=== PATIENT | female | born 1980 | race Caucasian/White ===

== ENCOUNTER 2017-10-16 10:41 | Inpatient (IN) ==
--- NOTE | 2017-10-16 11:43 | Emergency Department Note ---
Disposition Clinical Impression: Suicide ideation, Polysubstance (excluding opioids) dependence, Medical clearance for psychiatric admission Disposition: Admitted As Inpatient Condition: Undetermined General Adult HPI - General Chief complaint: ED Psychiatric Symptoms Stated complaint: SI Time Seen by Provider: 10/16/17 11:06 Source: patient Mode of arrival: private vehicle Limitations: no limitations Nursing Notes Reviewed: Yes Vital Signs Reviewed: Yes - History of Present Illness HPI Narrative: Patient is a 36-year-old female with past medical history including bipolar disorder, depression, anxiety, personality disorders, not on any medications, history of IV drug use and hepatitis C, presents with chief complaint of suicide ideation. Patient states she has a history of suicide ideation and attempt. 4 times in the past she has tried harming herself with intentional he will consumption of pills. She complains of difficulty sleeping and states she has been up for the past 4 days. She states yesterday she took IV heroin. She knew the dose was too much but she did not care. She states in the evening she was found unconscious by her boyfriend and friend. She was told they did CPR for approximately 10 minutes. She was also given intranasal Narcan. Shortly after she woke up. The patient refused to go to the ER have the squad called. She complains of some chest soreness but no difficulty breathing. She says for the past year she has been having intermittent episodes of thoughts of harming herself but has not acted upon them. Says this morning she had the impulse to harm herself. She does not have a plan in place. She says that she come to the ER for help because if she didn't, she would not be here in the next couple of days. She denies any visual or auditory hallucinations. She denies wanting to harm others. Pain Scale: 6 - Related Data Home Medications Medication Instructions Recorded Confirmed No Known Home Drugs 10/16/17 10/16/17 Allergies Allergy/AdvReac Type Severity Reaction Status Date / Time No Known Allergies Allergy Verified 10/16/17 12:41 All systems ED: reviewed and negative except as stated. Review of Systems: As Per HPI Constitutional: Denies: fever, chills Eyes: Denies: vision change ENT ED: Denies: throat pain, congestion Cardiovascular: Reports: other (Chest wall pain). Denies: palpitations, dyspnea on exertion Respiratory: Denies: cough, dyspnea Gastrointestinal: Denies: abdominal pain, nausea Genitourinary: Denies: urgency, dysuria, hematuria Musculoskeletal: Denies: back pain Integumentary: Denies: rash Neurological: Reports: headache Psychiatric: Reports: anxiety, depression, suicidal thoughts. Denies: homicidal thoughts, auditory hallucinations, visual hallucinations Hematological/Lymphatic: Denies: easy bleeding Past Medical History - Past Medical History Attestation: Yes The following information was validated with the patient. Source: patient Medical history: Reports: other (IV drug abuse) Psychiatric history: Reports: no psych history [employer] history: Reports: bilateral tubal ligation - Social History Smoking Status: Current every day smoker Alcohol use: Reports: none Drug use: Reports: cocaine, opiates, marijuana, IV Drug Use Physical Exam - General Limitations: no limitations General appearance: alert, in no apparent distress - Head Head exam: atraumatic, normocephalic - Eye Eye exam: Present: normal appearance, EOMI. Absent: scleral icterus - ENT ENT exam: normal oropharynx, mucous membranes moist - Chest Chest inspection: Present: symmetric chest wall rise, other (No ecchymosis) - Respiratory Respiratory exam: Present: normal lung sounds bilaterally. Absent: respiratory distress, wheezes, accessory muscle use - Cardiovascular Cardiovascular exam: Present: regular rate, normal rhythm, normal heart sounds - Abdominal Exam Abdominal exam: Present: soft, Non-Tender - Neurological Exam Neurological exam: Present: alert, oriented X3, CN II-XII intact - Psychiatric Psychiatric exam: Present: suicidal ideation, other (Tearful) - Skin Skin exam: Present: warm, dry Course Vital Signs Temperature 97.8 F 10/16/17 10:46 Pulse Rate 93 10/16/17 10:46 Respiratory Rate 16 10/16/17 10:46 Blood Pressure 121/87 10/16/17 10:46 O2 Sat by Pulse Oximetry 96 10/16/17 10:46 Temperature 98.2 F 10/16/17 14:09 Pulse Rate 94 10/16/17 15:03 Respiratory Rate 16 10/16/17 15:03 Blood Pressure 111/73 10/16/17 15:03 O2 Sat by Pulse Oximetry 97 10/16/17 15:03 Oxygen Delivery Oxygen Delivery Room Air Medical Decision Making - MDM Narrative Medical decision making narrative: Will get psychiatric medical clearance. CBC, BMP, urinalysis, urine drug screen , test, ethanol Tylenol and salicylate levels ordered. TSH ordered. We will also order a chest x-ray as the patient is complaining of chest wall pain secondary to having CPR performed the night prior. [place] slip sign. We will have 1-a evaluate the patient. 13:15 Chest x-ray results reviewed. There is no evidence of acute cardiopulmonary process. Labs also reviewed. No leukocytosis. Electrolyte within normal limits. Urinalysis without evidence of infection. TSH within normal limits. Ethanol, salicylate level, acetaminophen level not elevated. Urine drug screen positive for opiates, benzos, amphetamines, and THC. 1a currently evaluating the patient. 15:30 1a accepted. Patient will be admitted for further evaluation and management of suicide ideation - Medical Records Medical records reviewed: Yes I reviewed the patient's medical records. - Lab Data Lab results reviewed: Yes I reviewed the patient's lab results. Result diagrams: 10/16/17 11:49 10/16/17 11:49 Lab Results 10/16/17 10/16/17 10/16/17 Range/Units 11:13 11:13 11:49 WBC 10.9 (4.3-11.1) K/mcL RBC 4.31 (3.82-4.97) M/mcL Hgb 11.6 (11.5-15.4) g/dL Hct 35.5 (35.3-44.9) % MCV 82.4 L (83.0-100.0) fL MCH 26.9 L (28.0-33.3) pg MCHC 32.7 (31.6-35.5) g/dL RDW 16.2 H (11.5-14.5) % Plt Count 422 H (140-400) K/mcL MPV 10.1 (9.4-12.4) fL Immature Gran % 0.4 (0-4) % Seg Neutrophils % 50.9 % Lymphocytes % 34.8 % Monocytes % 11.2 % Eosinophils % 2.2 % Basophils % 0.5 % Neutrophils # 5.5 (1.6-8.9) K/mcL Lymphocytes # 3.8 (0.6-4.6) K/mcL Monocytes # 1.2 (0.0-1.3) K/mcL Eosinophils # 0.2 (0.0-0.6) K/mcL Basophils # 0.1 (0.0-0.2) K/mcL Sodium (136-145) mEq/L Potassium (3.5-5.1) mEq/L Chloride (98-107) mEq/L Carbon Dioxide (23-29) mEq/L BUN (6-20) mg/dL Creatinine (0.60-1.20) mg/dL Est GFR ( Amer) (> 60) Est GFR (Non-Af Amer) (> 60) BUN/Creatinine Ratio (6-26) Glucose (70-105) mg/dL Calculated Osmolality (280-300) Calcium (8.6-10.3) mg/dL TSH (0.340-5.600) mcIU/mL Serum , Qual (Negative) Urine Color Dark Yellow (Yellow) Urine Clarity Clear (Clear) Urine pH 6.0 (5.0-8.0) pH Units Ur Specific [place] 1.021 (1.010-1.025) Urine Protein 30 H (Neg-Trace) mg/dL Urine Glucose (UA) Normal (Normal) mg/dL Urine Ketones Trace H (Negative) mg/dL Urine Blood Negative (Negative) Urine Nitrite Negative (Negative) Urine Bilirubin Small H (Negative) Urine Urobilinogen Normal (Normal) mg/dL Ur Leukocyte Esterase Negative (Negative) Urine Microscopic RBC 5-15 H (0-3) per hpf Urine Microscopic WBC 3-5 H (0-3) per hpf Ur Squamous Epith Cells Many H (None-Few) per lpf Urine Bacteria None Seen (None-Few) per hpf Hyaline Casts Few (None-Few) per lpf Salicylates (15.0-30.0) mg/dL Urine Opiates Screen Positive H (Nxfupj=142) ng/mL Acetaminophen (10-20) mcg/mL Ur Barbiturates Screen Negative (Ntwlyf=824) ng/mL Ur Phencyclidine Scrn Negative (Cutoff=25) ng/mL Ur Amphetamines Screen Positive H (Wfzuhd=6569) ng/mL U Benzodiazepines Scrn Positive H (Mkivlx=512) ng/mL Urine Cocaine Screen Negative (Cutoff= 300) ng/mL U Marijuana (THC) Screen Positive H (Cutoff = 50) ng/mL Ur Drug Screen Interp See Below Ethyl Alcohol (Less than 10) mg/dL 08/27/18 08/27/18 Range/Units 11:49 11:49 WBC (4.3-11.1) K/mcL RBC (3.82-4.97) M/mcL Hgb (11.5-15.4) g/dL Hct (35.3-44.9) % MCV (83.0-100.0) fL MCH (28.0-33.3) pg MCHC (31.6-35.5) g/dL RDW (11.5-14.5) % Plt Count (140-400) K/mcL MPV (9.4-12.4) fL Immature Gran % (0-4) % Seg Neutrophils % % Lymphocytes % % Monocytes % % Eosinophils % % Basophils % % Neutrophils # (1.6-8.9) K/mcL Lymphocytes # (0.6-4.6) K/mcL Monocytes # (0.0-1.3) K/mcL Eosinophils # (0.0-0.6) K/mcL Basophils # (0.0-0.2) K/mcL Sodium 137 (136-145) mEq/L Potassium 3.6 (3.5-5.1) mEq/L Chloride 103 (98-107) mEq/L Carbon Dioxide 30 H (23-29) mEq/L BUN 8 (6-20) mg/dL Creatinine 0.67 (0.60-1.20) mg/dL Est GFR ( Amer) > 60 (> 60) Est GFR (Non-Af Amer) > 60 (> 60) BUN/Creatinine Ratio 12 (6-26) Glucose 117 H (70-105) mg/dL Calculated Osmolality 283 (280-300) Calcium 9.4 (8.6-10.3) mg/dL TSH 1.622 (0.340-5.600) mcIU/mL Serum , Qual Negative (Negative) Urine Color (Yellow) Urine Clarity (Clear) Urine pH (5.0-8.0) pH Units Ur Specific [place] (1.010-1.025) Urine Protein (Neg-Trace) mg/dL Urine Glucose (UA) (Normal) mg/dL Urine Ketones (Negative) mg/dL Urine Blood (Negative) Urine Nitrite (Negative) Urine Bilirubin (Negative) Urine Urobilinogen (Normal) mg/dL Ur Leukocyte Esterase (Negative) Urine Microscopic RBC (0-3) per hpf Urine Microscopic WBC (0-3) per hpf Ur Squamous Epith Cells (None-Few) per lpf Urine Bacteria (None-Few) per hpf Hyaline Casts (None-Few) per lpf Salicylates < 2.5 L (15.0-30.0) mg/dL Urine Opiates Screen (Hhsxqq=722) ng/mL Acetaminophen < 10 L (10-20) mcg/mL Ur Barbiturates Screen (Dmhzoa=326) ng/mL Ur Phencyclidine Scrn (Cutoff=25) ng/mL Ur Amphetamines Screen (Eextcu=2013) ng/mL U Benzodiazepines Scrn (Cactst=458) ng/mL Urine Cocaine Screen (Cutoff= 300) ng/mL U Marijuana (THC) Screen (Cutoff = 50) ng/mL Ur Drug Screen Interp Ethyl Alcohol < 10 (Less than 10) mg/dL - Radiology Data Radiology results reviewed: Yes I reviewed the patient's radiology results. Chest X-Ray 10/16/17 11:30 IMPRESSION: No radiographic evidence of acute cardiopulmonary disease. D/ / Ramesh King / Ramesh King Interpreting Provider: Ramesh King Attestation Statement - Attestation Attestation: I examined this patient and my medical decision-making was reviewed with the Resident Physician, Dr. Flannery. I agree with the documented findings, disposition and treatment plan as described except to the extent set forth below. Patient is a 36-year-old female with a history of psychiatric illness including depression with prior suicidal ideation and intent that she is been hospitalized for the past complaining of suicidal ideation today. Patient also has history of polysubstance abuse had been doing well and off drugs for approximately last 2 months and yesterday used heroin and other substances. Patient denies any attempts to harm herself prior to arrival denies any drug overdose and denies any current plan. I agree with patient's physical exam findings as documented. Vital signs are stable. Shows placed on suicide precaution and elopement precautions, pink slip was signed and placed on the chart. Laboratory evaluation is unremarkable with the exception of positive substances that she admitted to on her drug screen. Patient was evaluated by [facility] and recommended inpatient admission for further evaluation and management of her suicidal ideation. Patient will be admitted for further care.
[2017-10-16 11:48] LABS: Bilirubin,Urine Small (Negative); Blood,Urine Negative (Negative); Clarity,Urine Clear (Clear); Color,Urine Dark Yellow (Yellow); Glucose,Urine (UA) Normal (Normal); Ketones,Urine Trace mg/dL (Negative); Leukocyte Esterase,Urine Negative (Negative); Nitrite,Urine Negative (Negative); Protein,Urine 30 mg/dL (Neg-Trace); Specific Gravity,Urine 1.021 (1.010-1.025); Urobilinogen,Urine Normal (Normal)
[2017-10-16 11:53] LABS: Bacteria,Urine None Seen per hpf (None-Few); Hyaline Casts,Urine Few per lpf (None-Few); Squamous Epithelial Cell,Urine Many per lpf (None-Few)
[2017-10-16 12:13] LABS: Amphetamine Screen,Urine Positive ng/mL (Cutoff=1000); Barbiturate Screen,Urine Negative ng/mL (Cutoff=200); Benzodiazepines Screen,Urine Positive ng/mL (Cutoff=200); Cannabinoid Screen,Urine Positive ng/mL (Cutoff = 50); Cocaine Screen,Urine Negative ng/mL (Cutoff= 300); Opiate Screen,Urine Positive ng/mL (Cutoff=300); Phencyclidine Screen,Urine Negative ng/mL (Cutoff=25)
[2017-10-16 12:13] LABS: Basophils # 0.1 K/mcL (0.0-0.2); Basophils % 0.5 %; Eosinophils # 0.2 K/mcL (0.0-0.6); Eosinophils % 2.2 %; Hematocrit 35.5 % (35.3-44.9); Hemoglobin 11.6 g/dL (11.5-15.4); Immature Granulocytes % 0.4 % (0-4); Lymphocytes # 3.8 K/mcL (0.6-4.6); Lymphocytes % 34.8 %; Mean Corpuscular HGB Conc 32.7 g/dL (31.6-35.5); Mean Corpuscular Hemoglobin 26.9 pg (28.0-33.3); Mean Corpuscular Volume 82.4 fL (83.0-100.0); Mean Platelet Volume 10.1 fL (9.4-12.4); Monocytes # 1.2 K/mcL (0.0-1.3); Monocytes % 11.2 %; Neutrophils # 5.5 K/mcL (1.6-8.9); Platelet Count 422 K/mcL (140-400); Red Blood Count 4.31 M/mcL (3.82-4.97); Red Cell Distribution Width 16.2 % (11.5-14.5); Segmented Neutrophils % 50.9 %
[2017-10-16 12:29] LABS: Acetaminophen < 10 mcg/mL (10-20); BUN/Creatinine Ratio 12 (6-26); Blood Urea Nitrogen 8 mg/dL (6-20); Calcium 9.4 mg/dL (8.6-10.3); Carbon Dioxide 30 mEq/L (23-29); Chloride 103 mEq/L (98-107); Ethanol < 10 mg/dL (Less than 10); Glucose 117 mg/dL (70-105); Osmolality,Calculated 283 (280-300); Potassium 3.6 mEq/L (3.5-5.1); Salicylate < 2.5 mg/dL (15.0-30.0); Sodium 137 mEq/L (136-145); eGFR For Non-African Americans > 60 (> 60)
[2017-10-16 12:42] LABS: Thyroid Stimulating Hormone 1.622 mcIU/mL (0.340-5.600)
[2017-10-16] MEDS ORDERED: Mag Hydrox/Al Hydrox/Simeth 30 ML UDC PO PRN (17:23)
[2017-10-16] MEDS ORDERED: Ibuprofen 400 MG TABLET PO PRN (17:23)
[2017-10-16] MEDS ORDERED: *HR* LORazepam 2 MG/ML VIAL IM PRN (17:23)
[2017-10-16] MEDS ORDERED: Haloperidol Lactate 5 MG/ML VIAL IM PRN (17:23)
[2017-10-16] MEDS ORDERED: *HR* LORazepam 1 MG TABLET PO PRN (17:23)
[2017-10-16] MEDS ORDERED: MOM Conc 10 ML UD.LIQ PO PRN (17:23)
[2017-10-16] MEDS: Nicotine 21 MG PATCH.TD24 TD SCH (18:02)
[2017-10-16] MEDS: hydrOXYzine pamoate 25 MG CAPSULE PO PRN (20:24)
[2017-10-16] MEDS: traZODone 50 MG TABLET PO PRN (20:24)
[2017-10-17] MEDS: Nicotine 21 MG PATCH.TD24 TD SCH (08:37)
--- NOTE | 2017-10-17 13:36 | Psychiatry History & Physical ---
Date of Encounter: 10/17/17 Time of Encounter: 12:45 History of Present Illness Patient Stated Chief Complaint: I just need to balanced out, I took an overdose , I had a a manic low. Medicare Admission Attestation: For traditional Medicare patients the provided hospital inpatient services are reasonable and necessary and in the case of services not specified as inpatient -only under 42 CFR 419.22 (n), that they are appropriately provided as inpatient services in accordance 42 CFR 412.3. For Critical Access Hospital the patient may reasonably be expected to be discharged or transferred to a hospital within 96 hours after admission to the Critical Access Hospital. Admitted From: Emergency Dept Plans for Post Hospital Care: Home History of Present Illness: Ms. Perales is a 36 year old female Chief complaint "I just need to be balanced out. I have not been on medications for several years. "I took an overdose I had a manic low" History of present illness: The patient reports that she has been diagnosed with bipolar disorder and several personality disorders in the past she has been suicidal. She reports that she has been hospitalized on this unit 4 times in the past 13 years. Recent review of records does not show a discharge summary the electronic medical record. Nonetheless patient was able to recall being on this unit being treated with Haldol and being suicidal. The patient was being 1 month of erratic behavior she was told by family members to call and get an appointment. She tried to call the local mental Health Center but was told that there would be a long wait list and they would call her back. On 10/15/2017 she ran into somebody that had enough opiate to kill her. The patient felt them and took the injection in an attempt to kill her self. The patient reports that she heard the voice of another recently departed person and that she was trying to walk away. Meanwhile EMS reports they had to do compressions and give her Narcan one injection of Narcan was able to wake her up and she was brought to the emergency room. The patient now says "it was stupid" but at the time the patient was thinking that she did not want to be around and had a plan to kill her self. She now recognizes that she has 2 grandkids and needs to keep going on. The patient reports the onset of a mood disorder at age 14 or 15 she be happy and then all of a sudden depressed in the past she has been treated with Paxil, Wellbutrin, Remeron, Vistaril, trazodone, Neurontin, she is never been on Lamictal lithium Depakote carbamazepine Trileptal that she can recall. The patient has been on Seroquel briefly in the past but never on Zyprexa and Geodon and Abilify the lime mixer tender in vague she may been on risperidone but cannot recall. The patient reports positive manic symptoms DI GAF AST all positive and depressive symptoms escalate G: ECAPS and SI or these were all positive. The patient started using drugs at age 28. First she was prescribed Percocets for pain then she was taken off then she was buying Percocet on the street and then she was introduced to opiates. This included heroin. The patient's been using marijuana since she was young she did quit when she was . The patient was exposed to cocaine but did not like it. She used benzodiazepines but this was mostly to help with sleep she would take a blue Xanax would be able to sleep. The patient reports using methamphetamine a few times she feels that the contamination of her heroin may have been from the mixture of methamphetamine in. The patient did take benzodiazepines and opiates the same time with knowledge that it would cause respiratory suppression and . The patient was on Vivitrol for 1 year. She had gone into [facility] detoxification and had a relapse and went back in after 7 months nonetheless long-acting injectable naltrexone was effective in maintaining her sobriety. Then she went off The patient has been in at the local mental Health Center in [facility] the air she saw nurse practitioner on the TV screen and was prescribed Viibryd and duloxetine sometime in 2018 she was told maybe she did not have bipolar disorder and maybe she did not need these medicines. The patient was asked questions from DSM-V borderline personality disorder and she reported 9 of the 9 possible symptoms Past medical history: Surgery: Tubal ligation, cyst removal from right wrist. 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 In spite of the fact that she has grown since then she has not had to have these prosthetic ureters were replaced. Illnesses: COPD she smokes one pack of cigarettes per day. She has hepatitis C she used to be on an inhaler. The patient has been on no medicines and she has no known allergies The family history: The patient's mother's sisters about psychiatric illness the patient's father's sisters have had psychiatric illness is not known what they were treated with but probably antipsychotics were used. There is no family history of suicide. On the mother's side there are 2 brothers with alcohol problems one brother with a drug problem one sister with a drug problem on the dad's side there are 4 brothers with alcohol problems and an unknown number of sisters. One of the father's brothers has a drug problem and her dad gave up drinking alcohol when she was young. Social history: Patient went to 12th grade but she quit she left high school she got a GED she went to [employer] but then her uncle and she quit that. She is worked a variety of jobs but for the last 13 years she has been involved in a common-law marriage. There are 2 children from his side and 3 from her she lives with Charanjit who is also called Rodney. In the home Rodney sister has led a clean and sober life and is now on one quarter Suboxone per day. Rodney cleaned up after going to assisted and he did not return to drugs or alcohol. The patient has considered filing for disability as she has no income and claims mental disability Review of systems is significant for the fact that she wears glasses she said weight changes she has had insomnia she had weakness wheezing and shortness of breath. She has no urinary symptoms. She has had no worsening of hepatitis C Past Med Surg Social Fam HX - Past Medical History Source: patient Medical history: COPD, hepatitis, other (IV drug abuse) - Past Psychiatric History Psychiatric history: Reports: bipolar, depression, previous psychiatric hospitalization Family psychiatric history: Yes Family History of Suicide: None - Past Surgical History Surgical History: ureteral stent, other - Social History Smoking Status: Current every day smoker Smokeless Tobacco Status: Yes (patient is wanting the patch) Alcohol use: none Drug use: cocaine, opiates, marijuana, IV Drug Use Current living situation: Home - Independent, With Family Activity Level: Independent ambulation Recent Out of Country Travel Within the Last 8 Weeks: No Exposure or Possible Exposure to Illness During Travel: No Medications & Allergies No Known Home Drugs 10/16/17 [History] 3 Allergy/AdvReac Type Severity Reaction Status Date / Time No Known Allergies Allergy Verified 10/16/17 12:41 Review of Systems Constitutional: Reports: weight change Eyes: Reports: vision change Cardiovascular: Denies: chest pain, palpitations, dyspnea on exertion Respiratory: Reports: dyspnea, other Gastrointestinal: Denies: abdominal pain, nausea, vomiting, diarrhea, constipation Genitourinary female: Denies: urgency, dysuria, frequency, abnormal menses, dyspareunia Musculoskeletal: Reports: back pain Integumentary: Denies: rash, lesions, pruritus Neurological: Denies: headache, weakness, numbness, memory loss Psychiatric: Reports: depression, suicidal ideation, mood swings Endocrine: Denies: fatigue, heat or cold intolerance Hematologic/Lymphatic: Denies: easy bruising, lymphadenopathy Allergic/Immunologic: Reports: facial swelling Exam - HEENT Head exam IM: Present: atraumatic Eye exam IM: Present: EOMI, normal appearance, PERRL ENT exam IM: Present: normal exam - Neurological Neurological exam: Present: CN II-XII intact - Respiratory Respiratory exam IM: Present: CTAB - GI/Abdominal GI/Abdominal exam IM: Present: normal bowel sounds, soft. Absent: tenderness - Extremities Extremities exam IM: Present: full ROM - Skin Skin exam IM: Present: dry, warm - Constitutional Vitals: Temp Pulse Resp BP Pulse Ox 97.8 F 84 18 113/77 97 10/17/17 09:00 10/17/17 09:00 10/17/17 09:00 10/17/17 09:00 10/16/17 15:03 General appearance: age & developmentally appropriate, well-groomed, well- nourished - Musculoskeletal Gait: normal Station: relaxed Strength & Tone: normal for patient - Psychiatric Patient Orientation: Yes Person, Yes Time, Yes Place Level of alertness: Alert Behavior: calm, cooperative, restless Psychomotor activity: Normal Eye Contact: Maintains Eye Contact Mood Description: Depressed, Irritable Affect description: full range, dysphoric Speech Volume: Normal Speech pattern: normal rate, normal rhythm, normal tone, fluent, spontaneous Language & Vocabulary: consistent with education Thought Process: Linear, Goal Oriented Thought Content: Yes Suicidal ideation, No Homicidal ideation, No Overt delusions Perceptual Disturbances: No Auditory hallucinations, No Visual hallucinations Attention Span Ability: Capable of Focused Attention Memory Description: Grossly Intact Patient Reliability: Reliable Historian Fund of knowledge: Yes abstraction ability, Yes average, Yes aware of current events Intelligence Estimate: Average Judgment: Limited Insight: Minimal Results - Labs Labs: Laboratory Last Values WBC 10.9 K/mcL (4.3-11.1) 10/16/17 11:49 RBC 4.31 M/mcL (3.82-4.97) 10/16/17 11:49 Hgb 11.6 g/dL (11.5-15.4) 10/16/17 11:49 Hct 35.5 % (35.3-44.9) 10/16/17 11:49 MCV 82.4 fL (83.0-100.0) L 10/16/17 11:49 MCH 26.9 pg (28.0-33.3) L 10/16/17 11:49 MCHC 32.7 g/dL (31.6-35.5) 10/16/17 11:49 RDW 16.2 % (11.5-14.5) H 10/16/17 11:49 Plt Count 422 K/mcL (140-400) H 10/16/17 11:49 MPV 10.1 fL (9.4-12.4) 10/16/17 11:49 Immature Gran % 0.4 % (0-4) 10/16/17 11:49 Seg Neutrophils % 50.9 % 10/16/17 11:49 Lymphocytes % 34.8 % 10/16/17 11:49 Monocytes % 11.2 % 10/16/17 11:49 Eosinophils % 2.2 % 10/16/17 11:49 Basophils % 0.5 % 10/16/17 11:49 Neutrophils # 5.5 K/mcL (1.6-8.9) 10/16/17 11:49 Lymphocytes # 3.8 K/mcL (0.6-4.6) 10/16/17 11:49 Monocytes # 1.2 K/mcL (0.0-1.3) 10/16/17 11:49 Eosinophils # 0.2 K/mcL (0.0-0.6) 10/16/17 11:49 Basophils # 0.1 K/mcL (0.0-0.2) 10/16/17 11:49 Sodium 137 mEq/L (136-145) 10/16/17 11:49 Potassium 3.6 mEq/L (3.5-5.1) 10/16/17 11:49 Chloride 103 mEq/L (98-107) 10/16/17 11:49 Carbon Dioxide 30 mEq/L (23-29) H 10/16/17 11:49 BUN 8 mg/dL (6-20) 10/16/17 11:49 Creatinine 0.67 mg/dL (0.60-1.20) 10/16/17 11:49 Est GFR ( Amer) > 60 (> 60) 10/16/17 11:49 Est GFR (Non-Af Amer) > 60 (> 60) 10/16/17 11:49 BUN/Creatinine Ratio 12 (6-26) 10/16/17 11:49 Glucose 117 mg/dL (70-105) H 10/16/17 11:49 Calculated Osmolality 283 (280-300) 10/16/17 11:49 Calcium 9.4 mg/dL (8.6-10.3) 10/16/17 11:49 TSH 1.622 mcIU/mL (0.340-5.600) 10/16/17 11:49 Serum , Qual Negative (Negative) 10/16/17 11:49 Urine Color Dark Yellow (Yellow) 10/16/17 11:13 Urine Clarity Clear (Clear) 10/16/17 11:13 Urine pH 6.0 pH Units (5.0-8.0) 10/16/17 11:13 Ur Specific [place] 1.021 (1.010-1.025) 10/16/17 11:13 Urine Protein 30 mg/dL (Neg-Trace) H 10/16/17 11:13 Urine Glucose (UA) Normal mg/dL (Normal) 10/16/17 11:13 Urine Ketones Trace mg/dL (Negative) H 10/16/17 11:13 Urine Blood Negative (Negative) 10/16/17 11:13 Urine Nitrite Negative (Negative) 10/16/17 11:13 Urine Bilirubin Small (Negative) H 10/16/17 11:13 Urine Urobilinogen Normal mg/dL (Normal) 10/16/17 11:13 Ur Leukocyte Esterase Negative (Negative) 10/16/17 11:13 Urine Microscopic RBC 5-15 per hpf (0-3) H 10/16/17 11:13 Urine Microscopic WBC 3-5 per hpf (0-3) H 10/16/17 11:13 Ur Squamous Epith Cells Many per lpf (None-Few) H 10/16/17 11:13 Urine Bacteria None Seen per hpf (None-Few) 10/16/17 11:13 Hyaline Casts Few per lpf (None-Few) 10/16/17 11:13 Salicylates < 2.5 mg/dL (15.0-30.0) L 10/16/17 11:49 Urine Opiates Screen Positive ng/mL (Kxjhnq=544) H 10/16/17 11:13 Acetaminophen < 10 mcg/mL (10-20) L 10/16/17 11:49 Ur Barbiturates Screen Negative ng/mL (Wthogc=577) 10/16/17 11:13 Ur Phencyclidine Scrn Negative ng/mL (Cutoff=25) 10/16/17 11:13 Ur Amphetamines Screen Positive ng/mL (Nlmblc=5750) H 10/16/17 11:13 U Benzodiazepines Scrn Positive ng/mL (Gqsipm=664) H 10/16/17 11:13 Urine Cocaine Screen Negative ng/mL (Cutoff= 300) 10/16/17 11:13 U Marijuana (THC) Screen Positive ng/mL (Cutoff = 50) H 10/16/17 11:13 Ur Drug Screen Interp See Below 10/16/17 11:13 Ethyl Alcohol < 10 mg/dL (Less than 10) 10/16/17 11:49 Assessment and Plan (1) Bipolar disorder, current episode mixed, severe, without psychotic features Current visit: Yes Status: Acute Plan: Admit inpatient for safety and stabilization, Close observation, Suicide Precautions per unit protocol, Encourage participation in unit milieu, Group Therapy, Monitor sleep, Monitor appetite, Secure weapons, Family/Supportive other meeting Risks, benefits, side effects, alternatives discussed w/pt: Yes Patient agreeable to treatment: Yes Plans for Post Hospital Care: Home Estimated Length of Stay (Days): 5 (2) Suicide ideation Current visit: Yes Status: Acute Plan: Admit inpatient for safety and stabilization, Monitor appetite, Secure weapons Risks, benefits, side effects, alternatives discussed w/pt: Yes Patient agreeable to treatment: Yes Plans for Post Hospital Care: Home (3) Borderline personality disorder Current visit: Yes Status: Acute Plan: Family/Supportive other meeting Risks, benefits, side effects, alternatives discussed w/pt: Yes Patient agreeable to treatment: Yes Plans for Post Hospital Care: Home (4) Opioid dependence with intoxication delirium Current visit: Yes Status: Resolved Plan: Admit inpatient for safety and stabilization, Close observation, Suicide Precautions per unit protocol, Encourage participation in unit milieu Risks, benefits, side effects, alternatives discussed w/pt: Yes Patient agreeable to treatment: Yes Plans for Post Hospital Care: Home Estimated Length of Stay ( Days): 5 (5) Other stimulant abuse with stimulant-induced mood disorder Current visit: Yes Status: Acute Plan: Encourage participation in unit milieu, Monitor sleep, Monitor appetite Risks, benefits, side effects, alternatives discussed w/pt: Yes Patient agreeable to treatment: Yes Plans for Post Hospital Care: Home (6) Cigarette nicotine dependence, uncomplicated Current visit: Yes Status: Chronic Plan: Monitor appetite Risks, benefits, side effects, alternatives discussed w /pt: Yes Patient agreeable to treatment: Yes Plans for Post Hospital Care: Home
[2017-10-17] MEDS: Gabapentin 300 MG CAPSULE PO SCH ×2 (16:32→20:27)
[2017-10-17] MEDS: Divalproex (24 HR) 500 MG TABLET PO SCH (20:27)
[2017-10-17] MEDS: hydrOXYzine pamoate 25 MG CAPSULE PO PRN (21:36)
[2017-10-17] MEDS: traZODone 50 MG TABLET PO PRN (21:37)
[2017-10-18] MEDS: Nicotine 21 MG PATCH.TD24 TD SCH (09:00)
[2017-10-18] MEDS: Gabapentin 300 MG CAPSULE PO SCH ×3 (09:01→20:17)
--- NOTE | 2017-10-18 11:39 | Psychiatry Progress Note ---
Date of Encounter: 10/18/17 Time of Encounter: 11:30 Subjective Interval history: ID the patient is a 36-year-old white female. Chief complaint I just want to go home. I promised that I will not attempt suicide. Going to stay with my mother. He will be safe there. I need to get back to my grandkids. History of present illness. The patient did well overnight limited Seroquel she tolerated gabapentin she tolerated Depakote. She notes no tremor or no nausea no dizziness. Today she is upset because she wanted to go home. She is talked to her common-law is Dr. lopez. The social workers talked to her and she is scheduled later in the month for follow-up. Today in [facility] occurred where individuals were exposed to an unknown substance. This is likely to limit the ability to access Narcan and naloxone rescue kids. It is important for the patient have not naloxone rescue. At the time of discharge because of her overdose and her current living situation. The patient says that she will go live with her mother. He says that she has no plans to kill herself and that her impulsive attempt to kill herself while lethal was "stupid". The patient says that she will be compliant with her treatment. She even consider the possibility of AA and NA as part of her treatment. In the past the patient had been improved and her opiate dependence by being on the medicine naltrexone and the long-acting version of this medicine. The patient presents with lability. She has both features of nik and depression by her history. And she became upset when she was told that she could not be discharged today. Review of Systems Psychiatric: Reports: depression, suicidal ideation, mood swings Results - Vital Signs Vital Signs: Temp Pulse Resp BP Pulse Ox 98.8 F 90 16 117/79 97 10/18/17 09:00 10/18/17 09:00 10/18/17 09:00 10/18/17 09:00 10/16/17 15:03 Assessment and Plan (1) Bipolar disorder, current episode mixed, severe, without psychotic features Current visit: Yes Status: Acute Plan: Continue hospitalization, Close observation, Encourage participation in unit milieu, Monitor sleep, Monitor appetite Risks, benefits, side effects, alternatives discussed w/pt: Yes Patient agreeable to treatment: Yes (2) Suicide ideation Current visit: Yes Status: Acute Plan: Continue hospitalization, Close observation, Group Therapy Risks, benefits, side effects, alternatives discussed w/pt: Yes Patient agreeable to treatment: Yes (3) Borderline personality disorder Current visit: Yes Status: Acute Plan: Continue hospitalization, Close observation, Family/Supportive other meeting Risks, benefits, side effects, alternatives discussed w/pt: Yes Patient agreeable to treatment: Yes (4) Opioid dependence with intoxication delirium Current visit: Yes Status: Resolved Plan: Suicide Precautions per unit protocol, Monitor appetite, Family/ Supportive other meeting Risks, benefits, side effects, alternatives discussed w/pt: Yes Patient agreeable to treatment: Yes (5) Other stimulant abuse with stimulant-induced mood disorder Current visit: Yes Status: Acute Plan: Suicide Precautions per unit protocol, Monitor appetite Risks, benefits , side effects, alternatives discussed w/pt: Yes Patient agreeable to treatment: Yes (6) Cigarette nicotine dependence, uncomplicated Current visit: Yes Status: Chronic Plan: Other Risks, benefits, side effects, alternatives discussed w/pt: Yes Patient agreeable to treatment: Yes Consult Discharge Plan - Plan Referrals: [facility] [Outside] - 11/16/17 1:30 pm (The above appointment is with Nae Loaiza for outpatient psychiatric assessment and medication management services. Please arrive 30 minutes early for first time psychiatry appointments, and 15 minutes early for follow-up psychiatry appointments. Please bring your photo ID (bring proof of address if you do not have an ID), insurance card and medication list. IF YOU DO NOT BRING YOUR INSURANCE CARD YOU CANNOT BE SEEN. The above appointment(s) reflects first availability. You may contact the office regularly to check for cancellations that may allow you to be seen sooner. ) [facility] 1[facility] pm (You will be meeting with [facility] for mental health and substance abuse counseling. Please bring your photo id, insurance card, proof of address, and proof of household income. ) Psychiatry Exam - Constitutional Vitals: Temp Pulse Resp BP Pulse Ox 98.8 F 90 16 117/79 97 10/18/17 09:00 10/18/17 09:00 10/18/17 09:00 10/18/17 09:00 10/16/17 15:03 General appearance: age & developmentally appropriate, well-groomed, well- nourished - Musculoskeletal Gait: normal Station: relaxed Strength & Tone: normal for patient - Psychiatric Patient Orientation: Yes Person, Yes Time, Yes Place Level of alertness: Alert Behavior: dramatic, withdrawn Psychomotor activity: Slowed Eye Contact: Minimal Contact Mood Description: Depressed Affect description: labile Speech Volume: Normal Speech pattern: normal rate Language & Vocabulary: high school level Thought Process: Logical Thought Content: Yes Suicidal ideation Perceptual Disturbances: Yes Reacting to internal stimuli Attention Span Ability: Capable of Sustained Attention Memory Description: Grossly Intact Patient Reliability: Questionable Historian Fund of knowledge: Yes average Intelligence Estimate: Average Judgment: Limited Insight: Minimal
[2017-10-18] MEDS: hydrOXYzine pamoate 25 MG CAPSULE PO PRN (17:10)
[2017-10-18] MEDS: Divalproex (24 HR) 500 MG TABLET PO SCH (20:17)
[2017-10-18] MEDS: traZODone 50 MG TABLET PO PRN (21:16)
[2017-10-19] MEDS: Gabapentin 300 MG CAPSULE PO SCH (08:43)
[2017-10-19 08:44] LABS: Albumin 4.1 g/dL (3.5-5.7); Bilirubin,Direct 0.2 mg/dL (0.0-0.2); Bilirubin,Indirect 0.4 mg/dL (0.0-1.2); Bilirubin,Total 0.6 mg/dL (0.3-1.0); Chol/HDL Ratio 2.5 (0-4.9); Globulin 4.1 g/dL (2.4-3.5); Total Protein 8.2 g/dL (6.4-8.9)
[2017-10-19] MEDS: Nicotine 21 MG PATCH.TD24 TD SCH (08:44)
[2017-10-19 09:31] VITALS: BP 105/78
--- NOTE | 2017-10-19 10:03 | Discharge Summary ---
Date of Encounter: 10/19/17 Time of Encounter: 10:15 Diagnosis - Discharge Diagnosis (1) Bipolar disorder, current episode mixed, severe, without psychotic features Status: Acute (2) Suicide ideation Status: Acute (3) Borderline personality disorder Status: Acute (4) Opioid dependence with intoxication delirium Status: Resolved (5) Other stimulant abuse with stimulant-induced mood disorder Status: Acute (6) Cigarette nicotine dependence, uncomplicated Status: Chronic Medications - Discharge Medications Prescriptions: Albuterol Sulfate [Albuterol Inhaler] 2 puff IH [id number] PRN 28 Days #1 inhaler PRN Reason: Shortness Of Breath/Wheezing Divalproex (24 HR) [Depakote ER (24 HR)] 1,000 mg PO HS 30 Days #60 tab.er.24h Gabapentin [Neurontin] 300 mg PO TID 30 Days #90 capsule Quetiapine Fumarate [Seroquel] 200 mg PO HS 30 Days #30 tablet Albuterol Sulfate [Albuterol Inhaler] 2 puff IH [id number] PRN 28 Days #1 inhaler 10/19/17 [Rx] Divalproex (24 HR) [Depakote ER (24 HR)] 1,000 mg PO HS 30 Days #60 tab.er.24h 10/19/17 [Rx] Gabapentin [Neurontin] 300 mg PO TID 30 Days #90 capsule 10/19/17 [Rx] Quetiapine Fumarate [Seroquel] 200 mg PO HS 30 Days #30 tablet 10/19/17 [Rx] 3 Allergy/AdvReac Type Severity Reaction Status Date / Time No Known Allergies Allergy Verified 10/16/17 12:41 Results Procedures and tests throughout hospitalization: Completed Lab Orders Category Date Time Status Glucose Routine Lab 10/18/17 06:00 Completed Hepatic Panel Routine Lab 10/18/17 06:00 Completed Lipid Panel Routine Lab 10/18/17 06:00 Completed Valproate Routine Lab 10/18/17 06:00 Completed Provider Date of admission: 10/16/17 16:01 Primary care physician: PCP NONE Psychiatry Exam - Constitutional Vitals: Temp Pulse Resp BP Pulse Ox 98.7 F 105 18 105/78 97 10/19/17 09:30 10/19/17 09:30 10/19/17 09:30 10/19/17 09:30 10/16/17 15:03 General appearance: age & developmentally appropriate, well-groomed, well- nourished - Musculoskeletal Gait: normal Station: relaxed Strength & Tone: normal for patient - Psychiatric Patient Orientation: Yes Person, Yes Time, Yes Place Level of alertness: Alert Behavior: calm, cooperative Psychomotor activity: Normal Eye Contact: Maintains Eye Contact Mood Description: Euthymic/stable Affect description: congruent with mood, full range, anxious Speech Volume: Normal Speech pattern: normal rate, normal rhythm, normal tone, fluent, spontaneous Language & Vocabulary: consistent with education Thought Process: Linear, Goal Oriented Thought Content: No Suicidal ideation, No Homicidal ideation, No Overt delusions Perceptual Disturbances: No Auditory hallucinations, No Visual hallucinations Attention Span Ability: Capable of Focused Attention Memory Description: Grossly Intact Patient Reliability: Reliable Historian Fund of knowledge: Yes abstraction ability, Yes aware of current events Intelligence Estimate: Average Judgment: Fair Insight: Partial Hospital Course Hospital course: Ms. Perales is a 36 year old female Chief complaint I just want to go home. I took an overdose and that was stupid. I am not going to use heroin again. History of present illness:. The patient was admitted after a suicide attempt in which she used heroin. The patient lost consciousness and required CPR in the demonstration of Narcan after the administration 1 dose of Narcan she woke up. The patient was seen in the emergency room and had been medically cleared and was admitted to the unit. After admission to the unit the patient reported less suicidal ideation and no on unit plan. She had said that she had tried to seek help for her behavioral health problems. However when she called was placed on a waiting list. Before she could get her appointment she ran into someone who supplied her with a lethal dose of opiate. Patient notes that she has a history of opiate dependence. And has used methamphetamine off and on nonetheless the patient has had a mood disorder that is being going on for 20 years. More recently was exacerbated by occasional use of methamphetamine. Patient reported that she had borderline personality disorder. The Previous diagnosis of bipolar disorder was given. At the time admission and Hospital course the patient reported all major symptoms of major depression and Katt. The patient's behavior on the unit was significant for mood swings irritability despondency and also remorse for the suicide attempt. She made some additional discharge plans. In an effort to try and treat the bipolar disorder she was placed on Seroquel and tolerated the initial dose of 100 mg and a subsequent dose of 200 mg. The patient was placed on Depakote based on weight. The dose was 1000 mg per day The patient had blood work drawn prior to discharge. Patient has a history of hepatitis C and liver enzymes were normal at the time of admission and were also normal at the time of discharge. Ady valproic acid level was 66. Lipids were within normal limits and the blood sugar was 99 at the time discharge this is a fasting blood sugar. Appointments were made for follow-up at local [facility]. Patient was offered treatment with medication assisted treatment for opiate dependence but she wished to maintain her sobriety on her own. Nonetheless she was felt to be at risk for another possible overdose or to be around someone who might be an at risk for overdose of opiates and therefore and the naloxone intranasal kit was written for the time discharge. - Time Spent with Patient Total time spent providing and/or coordinating discharge services: Less than 30 minutes Assessment and Plan - Patient/Caregiver Discharge Instructions Activity: resume usual activities as tolerated Diet: regular diet Additional Instructions: The patient was advised to avoid alcohol and drugs abuse. She was identified as having a history of substance abuse and may benefit from medication assisted treatment future. - Follow [facility] 1:00 pm (The above appointment is with Ghislaine. When you come to your first appointment, you will be completing paperwork, meeting with a counselor, and developing a treatment plan. You will receive follow- up appointments for on-going services, which could include community support, mental health and substance abuse counseling, groups/partial hospitalization programming and medication assisted treatment.Please bring the following with you to your first visit to the clinic : 1) proof of household income (two consecutive pay stubs, social security award letter, bank statement, statement letter from [facility], child support statement, IRS 1040 or W2 form, or a statement from the person who financially supports you stating they help provide for your basic needs), 2) proof of residency (drivers license, a piece of mail showing your address, a statement from person you live with verifying you live at their address), 3) your social security card, 4) photo ID, 5) your insurance card (if you have commercial insurance you must call to obtain a prior authorization number before you arrive to your first appointment) and 6) if you do not have insurance but have applied for Medicaid, please bring verification you have applied. The above appointment(s) reflects first availability. You may contact the office regularly to check for cancellations that may allow you to be seen sooner.) [facility] [Outside] - 11/02/17 10:00 am (The above appointment is with Anabel Hodges for outpatient psychiatric assessment and medication management services. Please arrive 15 minutes early to complete paperwork. Please bring your insurance card, photo ID and medications in their original bottles. If you do not have insurance, bring proof of income to apply for the sliding fee scale. If you are unable to keep this appointment, 24 hour business notice of cancellation is expected. After you are seen once in the [place] office, your case may be transferred to the [place] office.) Functional capacity at discharge: independent ambulation Overall status at discharge: Stable Disposition: Home, Self-Care Quality - Multiple Antipsychotics Patient discharged on 2 or more antipsychotic medications: No Procedures - Procedures Procedures: Medication Management, Crisis Stabilization, Supportive Therapy, Group Therapy, Psychoeducational Therapy
== END 2017-10-19 11:20 | disposition home or self-care (01) | DRG 753 ==
LOC: EMEROOARM 10:41 → 1ANU 16:01
PROVIDERS: ADMIT Psychiatry & Neurology Forensic Psychiatry; ATTEND Psychiatry & Neurology Forensic Psychiatry

== ENCOUNTER 2019-05-09 19:53 | Inpatient (IN) ==
[2019-05-09] MEDS ORDERED: Naloxone 0.4 MG/ML INJ IVP PRN (22:43)
[2019-05-09] MEDS ORDERED: Nicotine 2 MG GUM BC PRN (22:43)
[2019-05-09] MEDS ORDERED: Cefepime HCl 2,000 MG in 0.9 % Sodium Chloride Mini Bag 100 ML IVP SCH (23:00)
[2019-05-09 23:22] LABS: Basophils % 0.3 %; Eosinophils % 0.3 %; Hemoglobin 9.1 g/dL (11.5-15.4); Immature Granulocytes % 0.4 % (0-4); Lymphocytes # 1.2 K/mcL (0.6-4.6); Lymphocytes % 9.8 %; Mean Corpuscular HGB Conc 31.4 g/dL (31.6-35.5); Mean Corpuscular Hemoglobin 26.5 pg (28.0-33.3); Mean Corpuscular Volume 84.3 fL (83.0-100.0); Mean Platelet Volume 11.8 fL (9.4-12.4); Monocytes # 1.1 K/mcL (0.0-1.3); Monocytes % 8.9 %; Neutrophils # 9.5 K/mcL (1.6-8.9); Platelet Count 105 K/mcL (140-400); Red Blood Count 3.44 M/mcL (3.82-4.97); Red Cell Distribution Width 16.6 % (11.5-14.5); Segmented Neutrophils % 80.3 %; White Blood Count 11.8 K/mcL (4.3-11.1)
[2019-05-09 23:40] LABS: Magnesium 1.7 mg/dL (1.6-2.6); Phosphorous 2.7 mg/dL (2.7-4.5)
[2019-05-09 23:45] LABS: Platelet Estimate Decreased (Normal)
[2019-05-09 23:47] LABS: Troponin I 0.18 ng/mL (< 0.04)
[2019-05-10 00:01] LABS: Thyroid Stimulating Hormone 1.999 mcIU/mL (0.340-5.600)
[2019-05-10] MEDS ORDERED: Morphine Sulfate 2 MG/ML SYRINGE IVP ONE (00:09)
[2019-05-10] MEDS: 0.9 % Sodium Chloride 1,000 ML IVC SCH ×2 (00:19→01:08)
[2019-05-10] MEDS: MetroNIDAZOLE 500 MG/100 ML 500 MG/100 ML BAG IVPB SCH ×2 (00:29→08:58)
[2019-05-10 04:20] LABS: Bilirubin,Urine Moderate (Negative); Blood,Urine Large (Negative); Clarity,Urine Turbid (Clear); Color,Urine Red (Yellow); Glucose,Urine (UA) Normal (Normal); Ketones,Urine Trace mg/dL (Negative); Leukocyte Esterase,Urine Large (Negative); Nitrite,Urine Positive (Negative); PH,Urine 5.5 pH Units (5.0-8.0); Protein,Urine 100 mg/dL (Neg-Trace); Specific Gravity,Urine 1.017 (1.010-1.025); Urobilinogen,Urine Normal (Normal)
[2019-05-10 04:21] LABS: Bacteria,Urine None Seen per hpf (None-Few); RBC,Urine TNTC per hpf (0-3); Squamous Epithelial Cell,Urine Many per lpf (None-Few); WBC,Urine 50-100 per hpf (0-3)
[2019-05-10 04:30] LABS: Hyaline Casts,Urine None Seen per lpf (None-Few)
[2019-05-10 04:47] LABS: Amphetamine Screen,Urine Negative ng/mL (Cutoff=1000); Barbiturate Screen,Urine Negative ng/mL (Cutoff=200); Benzodiazepines Screen,Urine Negative ng/mL (Cutoff=200); Cannabinoid Screen,Urine Negative ng/mL (Cutoff = 50); Cocaine Screen,Urine Negative ng/mL (Cutoff= 300); Opiate Screen,Urine Positive ng/mL (Cutoff=300); Phencyclidine Screen,Urine Negative ng/mL (Cutoff=25)
[2019-05-10 05:27] LABS: Basophils % 0.1 %; Eosinophils % 0.2 %; Hematocrit 26.7 % (35.3-44.9); Hemoglobin 8.5 g/dL (11.5-15.4); Immature Granulocytes % 0.4 % (0-4); Lymphocytes # 1.3 K/mcL (0.6-4.6); Lymphocytes % 8.6 %; Mean Corpuscular HGB Conc 31.8 g/dL (31.6-35.5); Mean Corpuscular Hemoglobin 26.6 pg (28.0-33.3); Mean Corpuscular Volume 83.4 fL (83.0-100.0); Mean Platelet Volume 11.9 fL (9.4-12.4); Monocytes # 1.7 K/mcL (0.0-1.3); Monocytes % 11.6 %; Platelet Count 104 K/mcL (140-400); Red Cell Distribution Width 16.7 % (11.5-14.5); Segmented Neutrophils % 79.1 %
[2019-05-10 05:31] LABS: Neutrophils # 11.9 K/mcL (1.6-8.9)
[2019-05-10] MEDS ORDERED: *HR* Heparin 5,000 UNIT/ML VIAL IVP ONE (05:40)
[2019-05-10] MEDS ORDERED: *HR* Heparin 5,000 UNIT/ML VIAL IVP PRN ×2 (05:40)
[2019-05-10] MEDS ORDERED: Aspirin Enteric Coated 81 MG Tablet PO ONE (05:41)
[2019-05-10] MEDS ORDERED: Heparin 25,000 UNIT/250 ML D5W 25,000 UNIT/250 ML IV.SOLN IVC SCH (05:45)
[2019-05-10 05:48] LABS: Platelet Estimate Decreased (Normal)
[2019-05-10 05:53] LABS: Alanine Aminotransferase 11 Units/L (7-52); Albumin 2.7 g/dL (3.5-5.7); Albumin/Globulin Ratio 0.8 (1.1-2.2); Alkaline Phosphatase 123 Units/L (34-104); Aspartate Amino Transferase 14 Units/L (13-39); BUN/Creatinine Ratio 10 (6-26); Bilirubin,Total 0.8 mg/dL (0.3-1.0); Blood Urea Nitrogen 50 mg/dL (6-20); Calcium 7.8 mg/dL (8.6-10.3); Carbon Dioxide 17 mEq/L (23-29); Chloride 107 mEq/L (98-107); Globulin 3.4 g/dL (2.4-3.5); Glucose 137 mg/dL (70-105); Iron < 10 mcg/dL (50-170); Lactate Dehydrogenase 145 Units/L (140-271); Osmolality,Calculated 293 (280-300); Potassium 4.1 mEq/L (3.5-5.1); Sodium 134 mEq/L (136-145); Total Protein 6.1 g/dL (6.4-8.9); Transferrin 179 mg/dL (203-362); eGFR For African Americans 12 (> 60); eGFR For Non-African Americans 10 (> 60)
[2019-05-10 06:15] LABS: Ferritin 96 ng/mL (10-120)
[2019-05-10 06:37] LABS: Heparin anti-factor XA UFH < 0.04 IU/mL (0.30-0.70); INR 1.2; Prothrombin Time 14.1 Seconds (9.4-12.1)
[2019-05-10] MEDS: Calcium Gluconate 1gm/50mL 1 GM/50 ML BAG IVPB SCH ×2 (07:55→08:58)
[2019-05-10 08:34] LABS: Estimated Average Glucose 117 mg/dl
[2019-05-10] MEDS: Nicotine 14 MG PATCH.TD24 TD SCH (09:17)
[2019-05-10] MEDS ORDERED: Ringers Solution, Lactated 1,000 ML IVC SCH (09:30)
[2019-05-10 11:59] LABS: Complement C3 101 mg/dL (87-200)
[2019-05-10 12:20] LABS: Hepatitis B Surface Antigen Nonreactive (Nonreactive)
[2019-05-10] MEDS ORDERED: Sodium Bicarbonate 75 MEQ in 0.45 % Sodium Chloride 1,000 ML IVC SCH (12:30)
[2019-05-10 12:49] LABS: Hepatitis B Core IgM Nonreactive (Nonreactive)
[2019-05-10 12:50] LABS: HIV-1&2 Antibody & p24 Ag Nonreactive (Nonreactive); Hepatitis A Antibody IgM Nonreactive (Nonreactive)
[2019-05-10 14:06] LABS: Hepatitis C Virus Antibody Reactive (Nonreactive)
[2019-05-10] MEDS: Sodium Bicarbonate 75 MEQ in 0.45 % Sodium Chloride 1,000 ML IVC SCH ×2 (14:39→22:55)
[2019-05-10] MEDS: *HR* HYDROcodone/Acet 5/325 mg TABLET PO PRN ×2 (15:42→21:47)
[2019-05-10 16:43] LABS: Sodium, Urine 58.6 mEq/L
[2019-05-10] MEDS ORDERED: *HR* Heparin 5,000 UNIT/ML VIAL SQ SCH (18:00)
[2019-05-10 18:14] LABS: Enterococcus by PCR Not Detected (Not Detect); mecA Methicillin-Resist Gene Not Detected (Not Detect)
[2019-05-10 18:15] LABS: Acinetobacter baumannii by PCR Not Detected (Not Detect); Candida albicans by PCR Not Detected (Not Detect); Candida glabrata by PCR Not Detected (Not Detect); Candida krusei by PCR Not Detected (Not Detect); Candida parapsilosis by PCR Not Detected (Not Detect); Candida tropicalis by PCR Not Detected (Not Detect); Enterobacter cloacae Cmplx PCR Not Detected (Not Detect); Enterobacteriaceae by PCR Not Detected (Not Detect); Escherichia coli by PCR Not Detected (Not Detect); Klebsiella oxytoca by PCR Not Detected (Not Detect); Klebsiella pneumoniae by PCR Not Detected (Not Detect); Proteus by PCR Not Detected (Not Detect); Pseudomonas aeruginosa by PCR Not Detected (Not Detect); Serratia marcescens by PCR Not Detected (Not Detect); Staphylococcus aureus by PCR DETECTED (Not Detect); Staphylococcus by PCR DETECTED (Not Detect); Streptococcus agalactiae(B)PCR Not Detected (Not Detect); Streptococcus by PCR Not Detected (Not Detect); Streptococcus pneumoniae PCR Not Detected (Not Detect); Streptococcus pyogenes (A) PCR Not Detected (Not Detect)
[2019-05-10] MEDS ORDERED: Perflutren Lipid Microsphere 1.3 ML in 0.9 % Sodium Chloride 8.7 ML IVP ONE (18:36)
[2019-05-10] MEDS ORDERED: Cefepime HCl 2,000 MG in 0.9 % Sodium Chloride Mini Bag 100 ML IVP SCH (23:00)
[2019-05-11] MEDS: *HR* HYDROcodone/Acet 5/325 mg TABLET PO PRN ×3 (05:08→21:05)
[2019-05-11 05:22] LABS: Hematocrit 21.8 % (35.3-44.9); Hemoglobin 7.2 g/dL (11.5-15.4); Immature Platelets 6.2 % (1.1-6.1); Mean Corpuscular Volume 78.7 fL (83.0-100.0); Mean Platelet Volume 12.4 fL (9.4-12.4); Red Blood Count 2.77 M/mcL (3.82-4.97); Red Cell Distribution Width 16.7 % (11.5-14.5); White Blood Count 15.6 K/mcL (4.3-11.1)
[2019-05-11 05:35] LABS: Calcium 7.5 mg/dL (8.6-10.3); Magnesium 1.4 mg/dL (1.6-2.6)
[2019-05-11] MEDS: Calcium Gluconate 1gm/50mL 1 GM/50 ML BAG IVPB SCH ×3 (06:39→08:25)
[2019-05-11] MEDS: Sodium Bicarbonate 75 MEQ in 0.45 % Sodium Chloride 1,000 ML IVC SCH ×2 (06:39→17:02)
[2019-05-11] MEDS: Nicotine 14 MG PATCH.TD24 TD SCH (08:26)
[2019-05-11] MEDS: Nafcillin 3,000 MG in 0.9 % Sodium Chloride 100 ML IVPB SCH ×3 (08:41→19:56)
[2019-05-11] MEDS ORDERED: Cefepime HCl 1,000 MG in 0.9 % Sodium Chloride Mini Bag 100 ML IVPB SCH (09:00)
[2019-05-11] MEDS ORDERED: *HR* Heparin 10,000 UNIT/10 ML VIAL IV PRN (14:56)
[2019-05-11] MEDS ORDERED: 0.9 % Sodium Chloride 250 ML IVC PRN (14:56)
[2019-05-11] MEDS ORDERED: 0.9 % Sodium Chloride 1,000 ML PRIME SCH (15:00)
[2019-05-12] MEDS: *HR* HYDROcodone/Acet 5/325 mg TABLET PO PRN ×4 (02:06→20:12)
[2019-05-12 02:28] LABS: Hematocrit 21.3 % (35.3-44.9); Hemoglobin 7.1 g/dL (11.5-15.4); Mean Corpuscular HGB Conc 33.3 g/dL (31.6-35.5); Mean Platelet Volume 11.3 fL (9.4-12.4); Platelet Count 143 K/mcL (140-400); Red Blood Count 2.73 M/mcL (3.82-4.97); Red Cell Distribution Width 16.9 % (11.5-14.5)
[2019-05-12] MEDS: Sodium Bicarbonate 75 MEQ in 0.45 % Sodium Chloride 1,000 ML IVC SCH ×3 (02:41→19:13)
[2019-05-12] MEDS: Nafcillin 3,000 MG in 0.9 % Sodium Chloride 100 ML IVPB SCH ×4 (02:41→23:17)
[2019-05-12 02:50] LABS: Calcium 7.6 mg/dL (8.6-10.3); Magnesium 2.2 mg/dL (1.6-2.6); Potassium 4.2 mEq/L (3.5-5.1)
[2019-05-12 05:50] LABS: Acinetobacter baumannii by PCR Not Detected (Not Detect); Candida albicans by PCR Not Detected (Not Detect); Candida glabrata by PCR Not Detected (Not Detect); Candida krusei by PCR Not Detected (Not Detect); Candida parapsilosis by PCR Not Detected (Not Detect); Candida tropicalis by PCR Not Detected (Not Detect); Enterobacter cloacae Cmplx PCR Not Detected (Not Detect); Enterobacteriaceae by PCR Not Detected (Not Detect); Enterococcus by PCR Not Detected (Not Detect); Escherichia coli by PCR Not Detected (Not Detect); Klebsiella oxytoca by PCR Not Detected (Not Detect); Klebsiella pneumoniae by PCR Not Detected (Not Detect); Proteus by PCR Not Detected (Not Detect); Pseudomonas aeruginosa by PCR Not Detected (Not Detect); Serratia marcescens by PCR Not Detected (Not Detect); Staphylococcus aureus by PCR DETECTED (Not Detect); Staphylococcus by PCR Not Detected (Not Detect); Streptococcus agalactiae(B)PCR Not Detected (Not Detect); Streptococcus by PCR Not Detected (Not Detect); Streptococcus pneumoniae PCR Not Detected (Not Detect); Streptococcus pyogenes (A) PCR Not Detected (Not Detect); mecA Methicillin-Resist Gene Not Detected (Not Detect)
[2019-05-12] MEDS: Nicotine 14 MG PATCH.TD24 TD SCH (07:52)
[2019-05-12] MEDS ORDERED: Aminoglycoside Consult 1 EACH MC ONE (09:15)
[2019-05-13] MEDS: *HR* HYDROcodone/Acet 5/325 mg TABLET PO PRN ×3 (01:30→17:00)
[2019-05-13] MEDS: Nafcillin 3,000 MG in 0.9 % Sodium Chloride 100 ML IVPB SCH ×3 (05:11→17:00)
[2019-05-13] MEDS: Sodium Bicarbonate 75 MEQ in 0.45 % Sodium Chloride 1,000 ML IVC SCH ×2 (05:11→16:58)
[2019-05-13 05:33] LABS: Hematocrit 21.5 % (35.3-44.9); Hemoglobin 7.2 g/dL (11.5-15.4); Mean Corpuscular HGB Conc 33.5 g/dL (31.6-35.5); Mean Corpuscular Volume 77.6 fL (83.0-100.0); Mean Platelet Volume 10.5 fL (9.4-12.4); Platelet Count 197 K/mcL (140-400); Red Blood Count 2.77 M/mcL (3.82-4.97); Red Cell Distribution Width 17.2 % (11.5-14.5); White Blood Count 13.5 K/mcL (4.3-11.1)
[2019-05-13 05:53] LABS: Calcium 6.9 mg/dL (8.6-10.3); Potassium 3.7 mEq/L (3.5-5.1)
[2019-05-13 07:03] LABS: ANA IgG by ELISA NONE DETECTED (None Detected)
[2019-05-13] MEDS ORDERED: *HR* Heparin 10,000 UNIT/10 ML VIAL IV PRN ×2 (07:46)
[2019-05-13] MEDS ORDERED: 0.9 % Sodium Chloride 250 ML IVC PRN (07:46)
[2019-05-13] MEDS: Nicotine 14 MG PATCH.TD24 TD SCH (08:34)
[2019-05-13] MEDS ORDERED: *HR* OxyCODONE Immed Rel 5 MG TABLET PO PRN (08:59)
[2019-05-13] MEDS ORDERED: Heparin 1,000 UNITS/500 mL 500 ML ONE (10:31)
[2019-05-13] MEDS ORDERED: *HR* Heparin 5,000 UNIT/ML VIAL ONE (11:47)
[2019-05-13 14:32] LABS: Anti-Streptolysin O Antibody 138 IU/mL (0-330)
[2019-05-13] MEDS ORDERED: *HR* Heparin 5,000 UNIT/ML VIAL SQ SCH (18:00)
[2019-05-13 18:08] VITALS: BP 131/81
[2019-05-15 09:31] LABS: Acinetobacter baumannii by PCR Not Detected (Not Detect); Candida albicans by PCR Not Detected (Not Detect); Candida glabrata by PCR Not Detected (Not Detect); Candida krusei by PCR Not Detected (Not Detect); Candida parapsilosis by PCR Not Detected (Not Detect); Candida tropicalis by PCR Not Detected (Not Detect); Enterobacter cloacae Cmplx PCR Not Detected (Not Detect); Enterobacteriaceae by PCR Not Detected (Not Detect); Enterococcus by PCR Not Detected (Not Detect); Escherichia coli by PCR Not Detected (Not Detect); Klebsiella oxytoca by PCR Not Detected (Not Detect); Klebsiella pneumoniae by PCR Not Detected (Not Detect); Proteus by PCR Not Detected (Not Detect); Pseudomonas aeruginosa by PCR Not Detected (Not Detect); Serratia marcescens by PCR Not Detected (Not Detect); Staphylococcus aureus by PCR DETECTED (Not Detect); Streptococcus agalactiae(B)PCR Not Detected (Not Detect); Streptococcus by PCR Not Detected (Not Detect); Streptococcus pneumoniae PCR Not Detected (Not Detect); Streptococcus pyogenes (A) PCR Not Detected (Not Detect); mecA Methicillin-Resist Gene Not Detected (Not Detect)
== END 2019-05-13 18:45 | disposition short-term general hospital (02) | DRG 720 ==
LOC: 2NNU → SUATTDRO 21:02
PROVIDERS: ADMIT Internal Medicine; ATTEND Internal Medicine